=== PATIENT | female | born 1985 | race Caucasian/White ===

== ENCOUNTER 2018-06-03 15:45 | Outpatient (CLI) | payer MEDICAID ==
--- NOTE | 2018-06-04 06:55 | Ultrasound Report ---
Reason: ENCOUNTER FOR TEST, RESULT POSITIVE Procedure Date: 06/03/2018 Accession Number: [id number] / [id number] Procedure: US - OB First Trimester CPT Code: FULL RESULT: EXAM: FIRST TRIMESTER OBSTETRIC ULTRASOUND (Less than 11 weeks) EXAM DATE: 06/03/2018 04:56 PM. CLINICAL HISTORY: ENCOUNTER FOR TEST, RESULT POSITIVE. LMP: 03/25/2018, 10 weeks 0 days. COMPARISONS: None. TECHNIQUE: Transabdominal and transvaginal ultrasound examination with static image documentation. FINDINGS: Gestational Sac: An intrauterine fluid-filled sac contains both an embryo and yolk sac. Embryo: CRL (crown-rump length) measures 31 mm corresponding to an estimated gestational age of 9 weeks 4 days. Heart Rate: 169 beats per minute. Placenta: Not visible at this gestational age. Amniotic fluid: Not accurately assessed at this gestational age. Uterus: Unremarkable anteverted appearance. Cervix: Closed. Right Ovary: Volume 6 cc. Normal echotexture and blood flow. Left Ovary: Volume 10 cc. Normal echotexture and blood flow. Free Fluid: None. Other: None. IMPRESSION: Single live intrauterine at 10 weeks 0 days by LMP, today's exam is concordant -- for an estimated delivery date of 12/30/2018. RADIA
== END 2018-06-03 15:46 | disposition home or self-care (01) ==
LOC: DI 15:45
PROVIDERS: ATTEND Registered Nurse
DX: Z32.01 Encounter for pregnancy test, result positive (principal); Z3A.10 10 weeks gestation of pregnancy
CPT/HCPCS: 76801

== ENCOUNTER 2018-06-08 09:25 | Outpatient (CLI) | payer MEDICAID ==
[2018-06-08 14:22] LABS: MUDS CUTOFF CONCENTRATIONS CUTOFF CONC BELOW:
[2018-06-08 14:48] LABS: AMPHETAMINE SCREEN,URINE NEGATIVE (NEGATIVE); BENZODIAZEPINES SCREEN, URINE NEGATIVE (NEGATIVE); COCAINE SCREEN URINE NEGATIVE (NEGATIVE); METHADONE SCREEN, URINE NEGATIVE (NEGATIVE); METHAMPHETAMINES SCREEN, URINE NEGATIVE (NEGATIVE); OPIATE SCREEN, URINE NEGATIVE (NEGATIVE); OXYCODONE SCREEN, URINE NEGATIVE (NEGATIVE); PROPOXYPHENE SCREEN, URINE NEGATIVE (NEGATIVE); TRICYCLIC ANTIDEPRESSANT,URINE NEGATIVE (NEGATIVE)
== END 2018-06-08 09:26 ==
LOC: LAB.R 09:25
PROVIDERS: ATTEND Registered Nurse
DX: Z36.9 Encounter for antenatal screening, unspecified (principal)
CPT/HCPCS: 80306

== ENCOUNTER 2018-06-25 08:22 | Outpatient (CLI) | payer MEDICAID ==
[2018-06-25 08:57] LABS: BASOPHILS # (AUTO) 0.1 10^3/uL (0.0-0.1); BASOPHILS % (AUTO) 1.5 %; EOSINOPHILS # (AUTO) 0.1 10^3/uL (0.0-0.7); EOSINOPHILS % (AUTO) 0.9 %; HGB - HEMOGLOBIN 12.9 g/dL (12.0-16.0); LYMPHOCYTES # (AUTO) 1.6 10^3/uL (1.5-3.5); LYMPHOCYTES % (AUTO) 19.3 %; MEAN CORPUSCULAR HEMOGLOBIN 30.4 pg (27.0-31.0); MEAN CORPUSCULAR HGB CONC 34.6 g/dL (32.0-36.0); MEAN CORPUSCULAR VOLUME 87.9 fL (81.0-99.0); MEAN PLATELET VOLUME 8.1 fL (7.9-10.8); MONOCYTES # (AUTO) 0.5 10^3/uL (0.0-1.0); MONOCYTES % (AUTO) 5.7 %; NEUTROPHILS # (AUTO) 6.1 10^3/uL (1.5-6.6); NEUTROPHILS % (AUTO) 72.6 %; PLT - PLATELET COUNT 351 10^3/uL (130-450); RED BLOOD COUNT 4.25 10^6/uL (4.20-5.40); RED CELL DISTRIBUTION WIDTH 13.1 % (12.0-15.0); WHITE BLOOD COUNT 8.5 x10^3/uL (4.8-10.8)
[2018-06-25 09:11] LABS: HB2 TOTAL 13.9 g/dL; HEMOGLOBIN A1C 0.46 g/dL; HEMOGLOBIN A1C % 5.2 % (4.6-6.2)
[2018-06-25 10:17] LABS: ALBUMIN 3.6 g/dL (3.2-5.5); ALBUMIN/GLOBULIN RATIO 1.1 (1.0-2.2); BILIRUBIN,TOTAL 0.5 mg/dL (0.2-1.0); CREATININE 0.6 mg/dL (0.4-1.0)
[2018-06-25 10:34] LABS: BILIRUBIN,URINE NEGATIVE (NEGATIVE); CLARITY,URINE CLEAR (CLEAR); GLUCOSE, URINE (UA) NEGATIVE (NEGATIVE); KETONES,URINE (UA) TRACE mg/dL (NEGATIVE); LEUKOCYTE ESTERASE, URINE MODERATE (NEGATIVE); NITRITE,URINE NEGATIVE (NEGATIVE); OCCULT BLOOD,URINE NEGATIVE (NEGATIVE); PH,URINE 6.5 PH (5.0-7.5); PROTEIN,URINE NEGATIVE (NEGATIVE); UROBILINOGEN,URINE 1 (NORMAL) E.U./dL (NORMAL)
[2018-06-25 11:09] LABS: BACTERIA,URINE Moderate /HPF (None Seen); RBC,URINE 0-5 /HPF (0-5); SQUAMOUS EPITHELIAL CELL,UR MANY Squamous (<= Few)
[2018-06-26 14:56] LABS: HEPATITIS B SURFACE ANTIGEN NON-REACTIVE (NON-REACTIVE); HEPATITIS C ANTIBODY NON-REACTIVE (NON-REACTIVE)
[2018-06-26 15:22] LABS: HIV AG/AB 4TH GEN NON-REACTIVE (NON-REACTIVE)
== END 2018-06-25 08:23 | disposition home or self-care (01) ==
LOC: LAB 08:22
PROVIDERS: ATTEND Registered Nurse
DX: O99.211 Obesity complicating pregnancy, first trimester (principal); O26.21 Pregnancy care for patient with recurrent pregnancy loss, first trimester; Z36.9 Encounter for antenatal screening, unspecified
CPT/HCPCS: 36415; 80053; 81001; 81599; 82950; 83036; 84443; 85025; 86592; 86762; 86803; 86850; 86900; 86901; 87340; 87389

== ENCOUNTER 2018-08-06 14:53 | Outpatient (CLI) | payer MEDICAID | END 2018-08-06 23:59 | disposition home or self-care (01) | LOC: LAB.R 14:53 | PROVIDERS: ATTEND Registered Nurse | DX: N89.8 Other specified noninflammatory disorders of vagina (principal) | CPT/HCPCS: 87480; 87510; 87660 ==

== ENCOUNTER 2018-08-14 09:53 | Outpatient (CLI) | payer MEDICAID ==
--- NOTE | 2018-08-14 12:46 | Ultrasound Report ---
Reason: ENCOUNTER FOR OTHER SPECIFIED SCREENING Procedure Date: 08/14/2018 Accession Number: [id number] / [id number] Procedure: US - OB Detailed Eval CPT Code: FULL RESULT: EXAM: COMPLETE OBSTETRICAL ULTRASOUND EXAM DATE: 08/14/2018 11:26 AM. CLINICAL HISTORY: anatomic survey. LMP 03/24/2018 COMPARISON: 06/03/2018. TECHNIQUE: Real-time sonographic evaluation of the fetus performed by the chicken boner. Multiple sales representative business courses static images were saved for review. DATING: Established EGA 20 weeks 3 days with KEVON 12/29 based on LMP. EGA 19 weeks 6 days with KEVON 01/02/2019 based on prior ultrasound of 06/03/2018. EGA 20 weeks 5 days with KEVON 12/27/2018 based on the current ultrasound. GENERAL EVALUATION Jc . Cardiac activity: 148 bpm. movement: Present Presentation: Cephalic. Placenta: Posterior left position. No evidence for previa. Umbilical cord: 3 vessel cord. Central placental cord origin. Amniotic fluid: Subjectively normal. MVP 3.6 cm. BIOMETRY Bi-Parietal Diameter (BPD): 4.9 cm, 20 weeks 6 days Head Circumference (HC): 18.6 cm, 21 weeks 0 days Abdominal Circumference (AC): 15.3 cm, 20 weeks 3 days Femur Length (FL): 3.3 cm, 20 weeks 2 days Estimated Weight: 354 g, 46th percentile for gestational age. ANATOMY The intracranial structures, profile, face/nose/lips, spine, stomach, abdominal wall and cord insertion, diaphragm, kidneys, bladder, and extremities were imaged and demonstrate no abnormality. There is suboptimal visualization of the cardiac anatomy. Suggest follow-up limited ultrasound in 2-4 weeks. MATERNAL STRUCTURES Uterus: Unremarkable. Cervix: Long and closed. Transabdominal length 4.8 cm. Right ovary/adnexa: Unremarkable. Left ovary/adnexa: Unremarkable. Free fluid: None. IMPRESSION: 1. Jc intrauterine with gestational age 20 weeks 3 days based on LMP. 2. Estimated weight is within expected limits for assigned dating. 3. Normal anatomic survey with the exception of the cardiac anatomy which is suboptimally seen on this study.. Suggest follow-up limited ultrasound in 2-4 weeks to complete the anatomic survey. RADIA
== END 2018-08-14 09:54 | disposition home or self-care (01) ==
LOC: DI 09:53
PROVIDERS: ATTEND Nurse Practitioner Obstetrics & Gynecology
DX: Z36.89 Encounter for other specified antenatal screening (principal); Z3A.20 20 weeks gestation of pregnancy
CPT/HCPCS: 76811

== ENCOUNTER 2018-08-27 12:57 | Outpatient (CLI) | payer MEDICAID ==
--- NOTE | 2018-08-27 15:08 | Ultrasound Report ---
Reason: ENCOUNTER FOR OTHER SPECIFIED SCREENING Procedure Date: 08/27/2018 Accession Number: [id number] / [id number] Procedure: US - OB F/U or Repeat CPT Code: FULL RESULT: EXAM: FOLLOW-UP OBSTETRICAL ULTRASOUND EXAM DATE: 08/27/2018 02:25 PM. CLINICAL HISTORY: ENCOUNTER FOR OTHER SPECIFIED SCREENING. COMPARISON: 08/14/2018. TECHNIQUE: Real-time sonographic evaluation of the fetus performed by the general assembler. Multiple artist representative static images were saved for review. DATING: Established EGA 22 weeks 2 days with KEVON 12/29/2018 based on referring provider. GENERAL EVALUATION Jc . Cardiac activity: 146 bpm. movement: Visualized. Presentation: Cephalic. Placenta: Posterior position. Amniotic fluid: Normal. FEROZ 10.93 cm. MVP 4.2 cm. ANATOMY Four-chamber cardiac view, left and right ventricular outflow tract views are all normal. IMPRESSION: 1. Jc live intrauterine with gestational age 22 weeks 2 days based on referring obstetric information. 2. Normal cardiac anatomy. anatomy survey was completed normally. MIRANDAA
== END 2018-08-27 12:58 | disposition home or self-care (01) ==
LOC: DI 12:57
PROVIDERS: ATTEND Nurse Practitioner Obstetrics & Gynecology
DX: Z36.89 Encounter for other specified antenatal screening (principal); Z3A.22 22 weeks gestation of pregnancy
CPT/HCPCS: 76816

== ENCOUNTER 2018-10-02 11:15 | Outpatient (CLI) | payer MEDICAID ==
[2018-10-02 12:45] LABS: HGB - HEMOGLOBIN 12.5 g/dL (12.0-16.0); MEAN CORPUSCULAR HEMOGLOBIN 31.1 pg (27.0-31.0); MEAN CORPUSCULAR HGB CONC 34.9 g/dL (32.0-36.0); MEAN CORPUSCULAR VOLUME 89.2 fL (81.0-99.0); RED BLOOD COUNT 4.02 10^6/uL (4.20-5.40); RED CELL DISTRIBUTION WIDTH 13.4 % (12.0-15.0); WHITE BLOOD COUNT 9.9 x10^3/uL (4.8-10.8)
== END 2018-10-02 11:16 | disposition home or self-care (01) ==
LOC: LAB 11:15
PROVIDERS: ATTEND Registered Nurse
DX: Z36.89 Encounter for other specified antenatal screening (principal)
CPT/HCPCS: 36415; 82950; 85027; 86850

== ENCOUNTER 2018-10-19 06:11 | Outpatient (CLI) | payer MEDICAID ==
[2018-10-19 06:29] VITALS: BP 103/64
[2018-10-19 06:33] LABS: BILIRUBIN,URINE NEGATIVE (NEGATIVE); CLARITY,URINE CLEAR (CLEAR); GLUCOSE, URINE (UA) NEGATIVE (NEGATIVE); KETONES,URINE (UA) NEGATIVE (NEGATIVE); LEUKOCYTE ESTERASE, URINE SMALL (NEGATIVE); NITRITE,URINE NEGATIVE (NEGATIVE); OCCULT BLOOD,URINE TRACE-LYSE (NEGATIVE); PROTEIN,URINE NEGATIVE (NEGATIVE); UROBILINOGEN,URINE 0.2 (NORMAL) E.U./dL (NORMAL)
[2018-10-19 06:33] LABS: BASOPHILS % (AUTO) 0.4 %; EOSINOPHILS # (AUTO) 0.1 10^3/uL (0.0-0.7); EOSINOPHILS % (AUTO) 1.2 %; HGB - HEMOGLOBIN 12.3 g/dL (12.0-16.0); LYMPHOCYTES # (AUTO) 1.7 10^3/uL (1.5-3.5); LYMPHOCYTES % (AUTO) 17.1 %; MEAN CORPUSCULAR HEMOGLOBIN 29.6 pg (27.0-31.0); MEAN CORPUSCULAR HGB CONC 32.8 g/dL (32.0-36.0); MEAN CORPUSCULAR VOLUME 90.2 fL (81.0-99.0); MEAN PLATELET VOLUME 8.1 fL (7.9-10.8); MONOCYTES # (AUTO) 0.5 10^3/uL (0.0-1.0); MONOCYTES % (AUTO) 5.2 %; NEUTROPHILS # (AUTO) 7.7 10^3/uL (1.5-6.6); NEUTROPHILS % (AUTO) 76.1 %; PLT - PLATELET COUNT 361 10^3/uL (130-450); RED BLOOD COUNT 4.14 10^6/uL (4.20-5.40); RED CELL DISTRIBUTION WIDTH 13.8 % (12.0-15.0); WHITE BLOOD COUNT 10.1 x10^3/uL (4.8-10.8)
[2018-10-19 06:39] LABS: BACTERIA,URINE Rare /HPF (None Seen); RBC,URINE 0-5 /HPF (0-5); SQUAMOUS EPITHELIAL CELL,UR MANY Squamous (<= Few)
--- NOTE | 2018-10-19 08:33 | PROVIDER PROGRESS NOTE ---
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 She is a 33 y.o. EDC 12/29/18 by GELA gomez 29 6/7 weeks who presents with new onset 3rd trimester bleeding since this AM at 0300 hours. States noted several "lynette size" clots per vagina when she got up this AM to use BR. Last coitus 3 weeks ago. Has not been sexually active much this , but states she has had spotting after coitus during . Second trimester US report documents posterior placenta . Patient denies ongoing abdominal pain or uterine contractions. O: VSS/AF, pulse 91, 98% on RA Category I FHR tracing with no contractions, baseline FHR 150 bpm. Bedside abdominal US by me confirms posterior placenta well away from cervix with normal AF amount subjectively. Speculum exam performed by me, difficult exam due to redundant vaginal sidewalls, was able to visualize anterior cervix which appeared sl. friable, but no blood noted that appeared coming through cervical os, nor was there any evidence of bright red blood in vagina, old blood-tinged vaginal discharge only. Digital exam by performed using sterile glove revealed a cervix that was small, long and closed. Labs: UA with trace blood only CBC with HCT 37% and normal PLT count Impression/Plan: # 3rd trimester bleeding, small and transient. Suspect due to friable cervix. No active bleeding. RH + # Precautions given to return for further vaginal bleeding or contractions or abdominal pain, which could be signs of abruption or labor. # F/U with routine ob appointment as scheduled, sooner prn. Objective - Vital Signs/Intake & Output Vital Signs: Vital Signs x48h Temp Pulse Resp BP Pulse Ox 10/19/18 06:23 36.5 C 85 16 103/64 100 - Lab Results Fish Bones: 10/19/18 06:33 Other Labs: Lab Results x24hrs 10/19/18 10/19/18 Range/Units 06:33 06:15 WBC 10.1 (4.8-10.8) x10^3/uL RBC 4.14 L (4.20-5.40) 10^6/uL Hgb 12.3 (12.0-16.0) g/dL Hct 37.4 (37.0-47.0) % MCV 90.2 (81.0-99.0) fL MCH 29.6 (27.0-31.0) pg MCHC 32.8 (32.0-36.0) g/dL RDW 13.8 (12.0-15.0) % Plt Count 361 (130-450) 10^3/uL MPV 8.1 (7.9-10.8) fL Neut # (Auto) 7.7 H (1.5-6.6) 10^3/uL Lymph # (Auto) 1.7 (1.5-3.5) 10^3/uL [place] # (Auto) 0.5 (0.0-1.0) 10^3/uL Eos # (Auto) 0.1 (0.0-0.7) 10^3/uL Baso # (Auto) 0.0 (0.0-0.1) 10^3/uL Absolute Nucleated RBC 0.00 x10^3/uL Nucleated RBC % 0.0 /100WBC Urine Color YELLOW Urine Clarity CLEAR (CLEAR) Urine pH 7.0 (5.0-7.5) PH Ur Specific [place] 1.020 (1.002-1.030) Urine Protein NEGATIVE (NEGATIVE) mg/dL Urine Glucose (UA) NEGATIVE (NEGATIVE) mg/dL Urine Ketones NEGATIVE (NEGATIVE) mg/dL Urine Occult Blood TRACE-LYSE (NEGATIVE) Urine Nitrite NEGATIVE (NEGATIVE) Urine Bilirubin NEGATIVE (NEGATIVE) Urine Urobilinogen 0.2 (NORMAL) (NORMAL) E.U./dL Ur Leukocyte Esterase SMALL H (NEGATIVE) Urine RBC 0-5 (0-5) /HPF Urine WBC 0-3 (0-5) /HPF Ur Squamous Epith Cells MANY Squamous H (<= Few) Urine Bacteria Rare (None Seen) /HPF Urine Culture Comments NOT INDICATED
== END 2018-10-19 07:45 | disposition home or self-care (01) ==
LOC: WFO 06:11 → FBP 06:13 → WFO 07:45
PROVIDERS: ATTEND Obstetrics & Gynecology
DX: O26.853 Spotting complicating pregnancy, third trimester (principal); Z3A.29 29 weeks gestation of pregnancy
CPT/HCPCS: 81001; 85025; 87086; 99214

== ENCOUNTER 2018-11-25 10:59 | Outpatient (CLI) | payer MEDICAID ==
[2018-11-25 11:18] VITALS: BP 109/76
[2018-11-25 12:41] LABS: BILIRUBIN,URINE NEGATIVE (NEGATIVE); GLUCOSE, URINE (UA) NEGATIVE (NEGATIVE); KETONES,URINE (UA) NEGATIVE (NEGATIVE); LEUKOCYTE ESTERASE, URINE LARGE (NEGATIVE); NITRITE,URINE NEGATIVE (NEGATIVE); OCCULT BLOOD,URINE TRACE-INTA (NEGATIVE); PH,URINE 7.5 PH (5.0-7.5); PROTEIN,URINE NEGATIVE (NEGATIVE); UROBILINOGEN,URINE 0.2 (NORMAL) E.U./dL (NORMAL)
[2018-11-25 12:50] LABS: CLARITY,URINE CLEAR (CLEAR)
[2018-11-25 12:59] LABS: RUPTURE OF MEMBRANES PLUS NEGATIVE (NEGATIVE)
[2018-11-25 13:04] LABS: BACTERIA,URINE Few /HPF (None Seen); RBC,URINE 0-5 /HPF (0-5); SQUAMOUS EPITHELIAL CELL,UR MOD Squamous (<= Few)
--- NOTE | 2018-11-25 13:37 | PROVIDER PROGRESS NOTE ---
- HPI Chief Complaint: Leakage of vaginal fluid Current : Current EDU 12/29/18 Gestation 35 Weeks and 1 Days 5 Para 1 Vital Signs Temperature 36.7 C 11/25/18 11:17 Heart Rate 83 11/25/18 11:17 Respiratory Rate 18 11/25/18 11:17 Blood Pressure 109/76 11/25/18 11:17 O2 Saturation 100 11/25/18 11:17 Temperature 36.7 C 11/25/18 11:17 Heart Rate 83 11/25/18 11:17 Respiratory Rate 18 11/25/18 11:17 Blood Pressure 109/76 11/25/18 11:17 O2 Saturation 100 11/25/18 11:17 - Exam SVE deferred. ROM plus collected. No gross leakage of fluid noted. - Procedures OB Procedure Performed: NST Diagnosis/Indication for NST: Other NST Procedure: NST reactive. Baseline 140s, moderate variability, + accels, no decels Date: 11/25/18 Findings: NST reactive - see previous note. - Plan Plan: Raquel presents to [facility] with c/o leakage of clear vaginal fluid this morning. She states she urinated and then after she stood up she felt another significant amount of vaginal leakage. She denies vaginal bleeding. Does report some lower abdominal and pubic bone pressure but does not feel this is a significant change from the past week. Intermittent BH contractions but nothing consistent or overly uncomfortable. She reports +FM. She denies urinary symptoms. O: SVE deferred. NST -reactive. FHR baseline 140s, moderate variability, + accels, no decels. No gross leakage of fluid noted. ROM plus collected - Negative UA collected and appears contaminated. No culture indicated. A: 33yo @ 35.1wks gestation Vaginal leakage of fluid False labor P: Patient discharged home with instructions and reviewed warning s/sx. She has a f/u appt 11/27/2018. Pt verbalized understanding and denies further questions or concerns at this time.
== END 2018-11-25 13:39 | disposition home or self-care (01) ==
LOC: WFO 10:59 → FBP 11:00 → WFO 13:39
PROVIDERS: ATTEND Nurse Practitioner Obstetrics & Gynecology
DX: O47.1 False labor at or after 37 completed weeks of gestation (principal); Z3A.35 35 weeks gestation of pregnancy
CPT/HCPCS: 81001; 81003; 84112; 87086; 99213

== ENCOUNTER 2018-11-27 10:43 | Outpatient (CLI) | payer MEDICAID ==
[2018-11-28 11:12] LABS: HIV AG/AB 4TH GEN NON-REACTIVE (NON-REACTIVE)
[2018-11-28 12:46] LABS: HEPATITIS C ANTIBODY NON-REACTIVE (NON-REACTIVE)
[2018-12-01 14:56] LABS: HSV 2 IGG TYPE SPECIFIC AB <0.90 index
== END 2018-11-27 10:44 | disposition home or self-care (01) ==
LOC: LAB 10:43
PROVIDERS: ATTEND Nurse Practitioner Obstetrics & Gynecology
DX: Z36.85 Encounter for antenatal screening for Streptococcus B (principal)
CPT/HCPCS: 36415; 81599; 86592; 86695; 86696; 86803; 87389; 87491; 87591; 87797

== ENCOUNTER 2018-11-27 11:01 | Outpatient (CLI) | payer MEDICAID | END 2018-11-27 23:59 | disposition home or self-care (01) | LOC: LAB.R 11:01 | PROVIDERS: ATTEND Nurse Practitioner Obstetrics & Gynecology | DX: Z36.85 Encounter for antenatal screening for Streptococcus B (principal) | CPT/HCPCS: 87491; 87591; 87797 ==

== ENCOUNTER 2018-12-18 09:48 | Outpatient (CLI) | payer MEDICAID ==
[2018-12-18 22:24] LABS: TRICHOMONAS VAGINALIS DNA NEGATIVE (NEGATIVE)
== END 2018-12-18 09:49 | disposition home or self-care (01) ==
LOC: LAB.R 09:48
PROVIDERS: ATTEND Obstetrics & Gynecology
DX: Z34.83 Encounter for supervision of other normal pregnancy, third trimester (principal)
CPT/HCPCS: 87491; 87591; 87661

== ENCOUNTER 2018-12-29 06:24 | Inpatient (IN) | payer MEDICAID ==
[2018-12-29] MEDS ORDERED: SODIUM CHLORIDE FLUSH 0.9% 10 ML SYRINGE IVP PRN (06:55)
[2018-12-29] MEDS ORDERED: LACTATED RINGERS 1,000 ML IV ONE ×2 (07:31→15:51)
[2018-12-29 08:04] LABS: BASOPHILS % (AUTO) 0.4 %; EOSINOPHILS # (AUTO) 0.1 10^3/uL (0.0-0.7); EOSINOPHILS % (AUTO) 0.5 %; LYMPHOCYTES # (AUTO) 1.7 10^3/uL (1.5-3.5); LYMPHOCYTES % (AUTO) 17.3 %; MEAN CORPUSCULAR HEMOGLOBIN 28.9 pg (27.0-31.0); MEAN CORPUSCULAR HGB CONC 33.4 g/dL (32.0-36.0); MEAN CORPUSCULAR VOLUME 86.5 fL (81.0-99.0); MEAN PLATELET VOLUME 9.5 fL (7.9-10.8); MONOCYTES # (AUTO) 0.6 10^3/uL (0.0-1.0); MONOCYTES % (AUTO) 5.9 %; NEUTROPHILS # (AUTO) 7.5 10^3/uL (1.5-6.6); NEUTROPHILS % (AUTO) 75.9 %; PLT - PLATELET COUNT 324 10^3/uL (130-450); RED BLOOD COUNT 4.14 10^6/uL (4.20-5.40); RED CELL DISTRIBUTION WIDTH 13.6 % (12.0-15.0); WHITE BLOOD COUNT 9.9 x10^3/uL (4.8-10.8)
[2018-12-29] MEDS: miSOPROStol 100 MCG TABLET BC SCH ×2 (08:51→12:56)
[2018-12-29] MEDS ORDERED: LIDOCAINE-MPF 1% 5 ML VIAL ONE (08:55)
[2018-12-29] MEDS ORDERED: OXYTOCIN/SODIUM CHLORIDE 500 ML IV ONE (08:55)
[2018-12-29] MEDS ORDERED: SODIUM CHLORIDE FLUSH 0.9% 10 ML SYRINGE IVP SCH (09:00)
[2018-12-29] MEDS ORDERED: LIDOCAINE-MPF 1% 30 ML VIAL ONE (09:17)
--- NOTE | 2018-12-29 12:10 | HISTORY & PHYSICAL EXAMINATION ---
Admit History - Visit Reason Visit Reason: Other - : 5 Parity: 1 Premature: 0 Ectopic: 0 : 3 Care: positive: [facility] Risk/History: positive: None Complications This : positive: None Smoking Status: Former smoker - Mother's Labs Mother's Blood Type: positive: O Mother's RH: positive: Positive GBS: positive: Group B Step Negative Rubella Status: positive: Immune Meds/Allgy - Home Medications Home Medications: Ambulatory Orders Medication Instructions Recorded Confirmed Medroxyprogesterone Acetate 150 mg IM 01/29/13 10/04/13 [Depo-Provera] Loratadine/Pseudoephedrine 1 each PO 10/04/13 10/04/13 [Claritin-D 24 Hour Tablet] - Allergies Allergies/Adverse Reactions: Allergies Allergy/AdvReac Type Severity Reaction Status Date / Time No Known Drug Allergies Allergy Verified 10/04/13 17:47 Review of Systems - Constitutional Constitutional: denies: Fatigue, Fever, Chills, Malaise - Eyes Eyes: denies: Pain, Blurred vision, Spots in vision, Dipolpia - Cardiovascular Cariovascular: denies: Irregular heart rate, Palpitations, Chest pain, Edema - Respiratory Respiratory: denies: Cough, SOB at rest - Gastrointestinal Gastrointestinal: denies: Abdominal pain, Constipation, Diarrhea, Nausea, Vomiting - Integumentary Integumentary: denies: Rash, Pruritis - Neurological Neurological: denies: Headache - Psychiatric Psychiatric: denies: Depression, Anxiety Physical - Abdominal Exam Contraction Frequency (min/apart): none - Monitoring Heart Rate Baseline: 150 Strip Review: positive: Category I - Presentation Presentation: positive: Vertex - Vaginal Exam Membranes: positive: Membranes intact Dilation (in cm): 2 Effacement (%): 50 Station: positive: -3 Cervical Position: positive: Posterior - Speculum Exam Speculum Exam Performed: positive: No Plan for Labor - Plan For Labor I expect patient to be DC'd or transferred within 96 hours.: Yes Plan for Labor: HPI: This 33yo presents on 12/29/2018 for scheduled, elective IOL at 40.0wks gestation by LMP c/w first trimester U/S. SHe denies VB or Lof and reports intermittent BH contractions and some uterine cramping following her visit yesterday but nothing overly uncomfortable. She reports +FM. She has been a pt of [facility] through the duration of her . Her has been complicated by her obesity however her early 1 hour GTT was WNL. She also had an abnormal pap followed by colposcopy without biopsy and will have repeat colposcopy at her 8wk pp visit. Her previous delivery 10 years ago was complicated by episiotomy with extension to a third degree laceration - pt counseled during and declines LTCS. Cervical exam deferred upon her arrival secondary to absence of contractions and recent cervical exam yesterday in the clinic was 2/50/unenganged, posterior vertex. She was placed in observation status for pre-induction cervical ripening with misoprostol. Dating criteria: LMP 03/24/2019 Initial U/S @ 10.0wks - agrees Serial exams: agree PMHx: 05/2018 pap HSIL, HPV positive - colposcopy ; Asthma; depression Surgical Hx: colposcopy Family Hx: Asthma- mother, brother; Diabetes - uncle; Depression - mother, sister; Ovarian cancer - maternal grandmother Social Hx: Former smoker, no etoh or IVDA OB Hx: G1: 07/31/2004 Elective G2: 10/11/2007 42wk , 13 hour labo, epidural. Male. 7lb 10oz; depression G3: 03/28/2015 SAB G4: SAB G5: current Immunizations: Tdap 10/02/2018 Ultrasounds: 06/03/2019: Initial US at 10.0wks gestation - agrees with LMP dating 08/14/2018 FAS WNL with the exception of poor visualization of cardiac structures. Posterior placenta, no previa. FEROZ WNL. 3VC. 08/27/2018 F/u U/S, cardiac anatomy WNL Physical Exam: Normocephalic, atraumatic PERRLA Heart RRR w/o M/G/R Lungs CTAB Abdomen gravid, soft, and nontender EFW 3100g SVE - deferred (last check 12/28/2018 = 2/50/unengaged, posterior, vertex Bilateral LE's no edema Boyfriend supportive at the bedside Assessment: 33yo @ 40.0wks by LMP=10.0wk U/S Elective induction of labor with pre-induction cervical ripening with misoprostol 50mcg BC q 4 hours GBS neg Obese Plan: Place in observation status. Admit with SROM, active labor, or epidural placement Epidural per maternal request 50mcg BC misoprostol q 4 hours Anticipate spontaneous vaginal delivery.
--- NOTE | 2018-12-29 12:44 | PROVIDER PROGRESS NOTE ---
Labor Progress Note - Uterine Monitoring Uterine Monitoring Mode: positive: External toco Contraction Frequency (min/apart): 2-6 Contraction Intensity: positive: Mild Uterine Resting Tone: positive: Soft - Monitoring Monitor Mode: positive: External ultrasound Heart Rate Baseline: 140 Heart Rate Variability: positive: Moderate (6-25 bmp) Accelerations: positive: Present, 15x15 Decelerations: positive: None Strip Review: positive: Category I - Labor Progress Note Labor Progress Note/Additional Text: S: Patient sitting up in bed and states she is beginning to feel more back discomfort. Has no desire to get in the jacuzzi. Planning an epidural for pain management but feels she is able to cope well at this time. Boyfriend is supportive at the bedside. O: BP 111/67, HR 78 FHR baseline 140, moderate variability, + accels, no decels Contractions palpate mild every 2-6 minutes with soft resting tone SROM a copious amount of clear fluid at 1054 SVE - deferred A: 33yo @ 40.0wks gestation by L=10.0wk U/S Elective IOL with pre-induction cervical ripening with 50mcg BC misoprostol q 4 hours - s/p 1 dose GBS neg Obese P: Continue pre-induction cervical ripening Continuous monitoring. Encouraged ambulation and position changes. Epidural per maternal request Plan pitocin when pt comfortable with epidural SVE prior to 1700 dosage of misoprostol. Reviewed plan of care with pt, boyfriend, and labor RN at the bedside who are all in agreement and deny further questions or concerns at this time. Anticipate spontaneous vaginal delivery.
[2018-12-29] MEDS ORDERED: miSOPROStol 200 MCG TABLET ONE (14:25)
[2018-12-29] MEDS ORDERED: fent/BUPIV 2 MCG/0.125% 250 ML EP ONE (14:47)
[2018-12-29] MEDS ORDERED: ePHEDrine 50 MG/ML VIAL IVP PRN (15:19)
[2018-12-29] MEDS ORDERED: LACTATED RINGERS 500 ML IV ONE (15:19)
[2018-12-29] MEDS ORDERED: ONDANSETRON 4 MG/2 ML VIAL IVP PRN (15:19)
[2018-12-29] MEDS ORDERED: NALBUPHINE 10 MG/ML AMP IVP PRN (15:19)
[2018-12-29] MEDS ORDERED: METOCLOPRAMIDE 10 MG/2 ML VIAL IVP PRN (15:19)
[2018-12-29] MEDS ORDERED: diphenhydrAMINE INJ 50 MG/ML VIAL IVP PRN (15:19)
[2018-12-29] MEDS ORDERED: NALOXONE 0.4 MG/ML VIAL IVP PRN (15:19)
[2018-12-29] MEDS ORDERED: fent/BUPIV 2 MCG/0.125% 250 ML EP PRN (15:20)
--- NOTE | 2018-12-29 15:36 | ANESTHESIA ---
Pre-Anesthesia VS, & Labs - Diagnosis Active labor - Procedure Labor epidural Height 5 ft 4 in Weight (kg) 117.879 kg - NPO Other (ate lunch) - Is Patient ?: Yes - Lab Results Current Lab Results: Laboratory Tests 12/29/18 07:45: WBC 9.9, RBC 4.14 L, Hgb 12.0, Hct 35.8 L, MCV 86.5, MCH 28.9, MCHC 33.4, RDW 13.6, Plt Count 324, MPV 9.5, Neut # (Auto) 7.5 H, Lymph # (Auto) 1.7, [place] # (Auto) 0.6, Eos # (Auto) 0.1, Baso # (Auto) 0.0, Absolute Nucleated RBC 0.01, Nucleated RBC % 0.1 Lab results reviewed: Yes Fish Bones: 12/29/18 07:45 Home Medications and Allergies Active Medications Diphenhydramine HCl (Benadryl Inj) 12.5 - 25 mg IVP Q6HR PRN PRN Reason: ITCHING Ephedrine Sulfate () 5 mg IVP Q5M PRN PRN Reason: For SBP<100;give until SBP>100 Lactated Ringer's (Lr) 500 mls @ 999 mls/hr IV ONCE ONE Stop: 12/29/18 15:49 Fentanyl/Bupivacaine/Sodium Chlor (Fent/Bupiv 2 Mcg/0.125%) 250 mls @ 12 mls/hr EP .[id number] PRN PRN Reason: Analgesia Metoclopramide HCl (Reglan Inj) 10 mg IVP Q6HR PRN PRN Reason: Nausea / Vomiting Misoprostol (Cytotec) 50 mcg BC Q4H [facility] Last Admin: 12/29/18 12:56 Dose: 50 mcg Nalbuphine HCl (Nubain) 2.5 - 5 mg IVP Q4H PRN PRN Reason: ITCHING Naloxone HCl (Narcan) 0.1 mg IVP Q2M PRN PRN Reason: RR<8 Ondansetron HCl (Zofran Inj) 4 mg IVP Q6HR PRN PRN Reason: Nausea / Vomiting Sodium Chloride (Normal Saline Flush 0.9%) 10 ml IVP 0100,0900,1700 [facility] Sodium Chloride (Normal Saline Flush 0.9%) 10 ml IVP PRN PRN PRN Reason: NEEDED PER PROVIDER ORDERS Last Admin: 12/29/18 14:37 Dose: 10 ml Medroxyprogesterone Acetate [Depo-Provera] 150 mg IM 01/29/13 Loratadine/Pseudoephedrine [Claritin-D 24 Hour Tablet] 1 each PO 10/04/13 Allergies/Adverse Reactions: Allergies Allergy/AdvReac Type Severity Reaction Status Date / Time No Known Drug Allergies Allergy Verified 10/04/13 17:47 Anes History & Medical History - Anesthetic History Anesthesia Complications: reports: No previous complications Family history of Anesthesia Complications: Denies Family history of Malignant Hyperthermia: Denies - Medical History Cardiovascular: reports: None Pulmonary: reports: Asthma Gastrointestinal: reports: None Urinary: reports: None Neuro: reports: None Musculoskeletal: reports: None Endocrine/Autoimmune: reports: None Blood Disorders: reports: None Skin: reports: None Smoking Status: Former smoker Psychosocial: reports: No issues indicated - Obstetrical History : 5 Parity: 1 Events: positive: None Complications: positive: None Exam General: Alert Dental: WNL Mouth Opening: Greater than 4 Fingerbreadths Neck Mobility: Normal Mallampati classification: I Thyromental Distance: greater than 6 cm Respiratory: Lungs clear Cardiovascular: Regular rate Plan Anesthesia Type: Epidural Consent for Procedure(s) Verified and Reviewed: Yes Code Status: Attempt Resuscitation ASA classification: 2-Mild systemic disease Is this case an emergency?: Yes
[2018-12-29] MEDS: LACTATED RINGERS 1,000 ML IV SCH ×2 (16:43→20:16)
[2018-12-29] MEDS ORDERED: OXYTOCIN/SODIUM CHLORIDE 500 ML IV SCH (17:00)
--- NOTE | 2018-12-29 18:17 | PROVIDER PROGRESS NOTE ---
Labor Progress Note - Uterine Monitoring Uterine Monitoring Mode: positive: External toco Contraction Frequency (min/apart): intermittent Contraction Intensity: positive: Moderate Uterine Resting Tone: positive: Soft - Monitoring Monitor Mode: positive: External ultrasound Heart Rate Baseline: 140 Heart Rate Variability: positive: Moderate (6-25 bmp) Accelerations: positive: Present, 15x15 Decelerations: positive: None Strip Review: positive: Category I - Labor Progress Note Labor Progress Note/Additional Text: S: Sitting comfortable in bed with epidural. She is feeling well. Having some lower BPs improved with fluid bolus. Pt asymptomatic. Mom supportive at the bedside. O: BP 105/67, HR 80 FHR baseline 130s, moderate variability, + accels, no decels Contractions palpate moderate intermittently. SVE deferred. Last check unchanged. A: 33yo @ 40.0wks gestation by LMP Early labor Pitocin via IV with titration per protocol currently at 2mU/mL GBS neg Obesity P: Continue pitocin via IV with titration per protocol Continuous monitoring Anticipate spontaneous vaginal delivery
[2018-12-29] MEDS ORDERED: WITCH HAZEL/GLYCERIN 1 EACH MED..PAD TOP PRN (22:19)
[2018-12-29] MEDS ORDERED: HYDROCORTISONE 1% CREAM 28 GM TUBE PR PRN (22:19)
[2018-12-29] MEDS ORDERED: OXYTOCIN/SODIUM CHLORIDE 500 ML IV PRN (22:20)
--- NOTE | 2018-12-29 22:36 | DELIVERY NOTE ---
Delivery Note - Labor Labor: positive: Augmented by oxytocin, Other - Delivery Method Delivery Method: positive: Spontaneous vaginal delivery - Cervical Ripening Method Cervical Ripening Method: positive: Misoprostil - Presentation Presentation: positive: Vertex, BARBARA - left occiput anterior - Nuchal Cord Nuchal Cord: positive: Present, Reduced - Amniotic Fluid Description Amniotic Fluid Description: positive: Clear - Episiotomy Type Episiotomy Type: positive: None - Laceration Laceration: positive: None - Delivery Outcome Delivery Outcome: positive: Livebirth - [place] : positive: Placed in direct skin contact with mother, Bulb syringe, Stimulated, Warmed, [place] used sex: positive: Male - Cord Cord: positive: 3 vessels - Placenta Placenta: positive: Intact, Spontaneous - Estimated Blood Loss Estimated Blood Loss (in cc): 200 - Post Delivery Events Post Delivery Events: positive: No post delivery events - Delivery Comments (Free Text/Narrative) Delivery Comments (Free Text/Narrative): Labor: This 33yo @ 40.0wks gestation presented at 0630 on 12/29/2018 for elective IOL. FHR pattern demonstrated Category I pattern throughout labor. Misoprostol 50mcg BC q 4 hours x 2 total doses administered for pre-induction cervical ripening. SROM occurred at 1054 and was noted to be a copioius amount of clear fluid. Epidural placement per maternal request. Pitocin administered via IV for augmentation for a max infusion rate of 3 mU/mL. Pt progressed to c/c/+2 with urge to push at 2110 on 12/29/2018. : Normal of a 9lb1oz viable male infant at 2200 on 12/29/2018. Nuchal cord x 2 reduced. The was placed on maternal abdomen, stimulated, dried, and placed skin to skin. Pitocin administered via IV for hemostasis. The umbilical cord was allowed to stop pulsating at which time it was doubly clamped by CNM and cut by FOB. Cord blood was obtained. Placenta delivered spontaneously and intact at 2204. 3VC. EBL 200mL. Uterine fundus firm and there is no excessive bleeding. The perineum, vagina, and cervix were inspected and found to be intact with bruising to vaginal floor. Family bonding well. Both mother and baby were left in skin to skin contact and in stable condition.
[2018-12-30] MEDS: IBUPROFEN 800 MG TABLET PO SCH ×3 (00:07→16:18)
--- NOTE | 2018-12-30 07:30 | PROVIDER PROGRESS NOTE ---
Subjective - Subjective Subjective: S: Bonding well with baby. with little difficulty and having some difficulty getting baby to stay awake at the breast. Bleeding decreased and is light. Pain minimal and well controlled with oral medications. O: BP 121/72, HR 80, RR 17, T 36.6 Heart RRR w/o M/G/R, lungs CTAB, abdomen soft and nontender with fundus firm at U. Bilateral LE's trace edema. A: 33yo -->P2 PPD#1 s/p TSVD of viable male Obesity P: Continue routine pp care and medications. Evaluate for discharge home tomorrow. Objective - Vital Signs/Intake & Output Vital Signs: Vital Signs x48h Temp Pulse Resp BP Pulse Ox 12/30/18 02:00 36.6 C 80 17 121/72 99 12/29/18 23:49 75 16 103/64 12/29/18 23:34 85 16 104/49 L Intake & Output: Intake & Output 12/27/18 12/28/18 12/29/18 12/30/18 23:59 23:59 23:59 23:59 Intake Total 1201.684 Output Total 700 300 Balance 501.684 -300 - Lab Results Fish Bones: 12/29/18 07:45 Other Labs: Lab Results x24hrs 12/29/18 Range/Units 07:45 WBC 9.9 (4.8-10.8) x10^3/uL RBC 4.14 L (4.20-5.40) 10^6/uL Hgb 12.0 (12.0-16.0) g/dL Hct 35.8 L (37.0-47.0) % MCV 86.5 (81.0-99.0) fL MCH 28.9 (27.0-31.0) pg MCHC 33.4 (32.0-36.0) g/dL RDW 13.6 (12.0-15.0) % Plt Count 324 (130-450) 10^3/uL MPV 9.5 (7.9-10.8) fL Neut # (Auto) 7.5 H (1.5-6.6) 10^3/uL Lymph # (Auto) 1.7 (1.5-3.5) 10^3/uL [place] # (Auto) 0.6 (0.0-1.0) 10^3/uL Eos # (Auto) 0.1 (0.0-0.7) 10^3/uL Baso # (Auto) 0.0 (0.0-0.1) 10^3/uL Absolute Nucleated RBC 0.01 x10^3/uL Nucleated RBC % 0.1 /100WBC
[2018-12-30] MEDS: ACETAMINOPHEN 500 MG TABLET PO SCH ×2 (07:47→16:18)
[2018-12-30] MEDS: DOCUSATE SODIUM 100 MG CAPSULE PO SCH (16:19)
[2018-12-31] MEDS: ACETAMINOPHEN 500 MG TABLET PO SCH (01:33)
[2018-12-31] MEDS: IBUPROFEN 800 MG TABLET PO SCH ×2 (01:33→08:35)
[2018-12-31 08:12] VITALS: BP 103/64
[2018-12-31] MEDS: DOCUSATE SODIUM 100 MG CAPSULE PO SCH (08:36)
--- NOTE | 2018-12-31 09:16 | PROVIDER PROGRESS NOTE ---
Subjective - Subjective Subjective: FINAL PROGRESS NOTE: S: Bonding well with baby. with some difficulty getting baby to latch. She has attempted to hand express without success. She was able to express colostrum with the pump and syringe fed baby. She also supplemented with formula and feels she will continue to do this at home at least until her milk comes in. She was able to nap last night while the nurses held the baby and she states she feels significantly better and like she now has a better. She has a strong desire to go home today. Bleeding is decreased and is light. Pain well controlled with oral medications. O: BP 100/67, HR 70; RR 18; T 36.6 Heart RRR w/o M/G/R, lungs CTAB, abdomen soft and nontender with fundus firm at U-1. Perineum intact. Bilateral LE's no edema. A: 33yo -->P2 PPD #2 s/p TSVD of viable male infant with formula supplementation Perineum intact Normal recovery P: Reviewed self care and warning s/sx. Advised continuation of PNV while Advised ibuprofen and tylenol OTC for pain management PRN F/u in 1 week for support visit and in 3 weeks for routine pp visit or sooner PRN. Pt verbalized understanding and agrees to above plan. She denies further questions or concerns at this time. Objective - Vital Signs/Intake & Output Vital Signs: Vital Signs x48h Temp Pulse Resp BP Pulse Ox 12/31/18 08:12 36.9 C 55 L 18 103/64 99 12/31/18 06:29 36.6 C 70 18 100/67 98 12/31/18 06:00 36.6 C 69 16 99/81 H 99 Intake & Output: Intake & Output 12/28/18 12/29/18 12/30/18 12/31/18 23:59 23:59 23:59 23:59 Intake Total 1201.684 Output Total 700 300 1 Balance 501.684 -300 -1 - Lab Results Fish Bones: 12/29/18 07:45
--- NOTE | 2018-12-31 09:17 | Discharge Plan ---
Discharge Plan Disposition: 01 Home, Self Care Condition: Good Diet: Regular Activity Restrictions: No Restrictions Shower Restrictions: No Driving Restrictions: No Weight Bearing: Full Weight No Smoking: If you smoke, Please STOP! Call for help. Follow-up with: Lizzeth Webber CNM, ARNP [Provider Admit Priv/Credential] -
--- NOTE | 2018-12-31 10:55 | DISCHARGE SUMMARY ---
Physician: HUGO Pina DATE OF ADMISSION: 12/29/2018 DATE OF DISCHARGE: 12/31/2018 DIAGNOSES ON ADMISSION 1. A 33-year-old -0-3-1 at 40 week's gestation. 2. Elective induction of labor. 3. Group B streptococcus negative. 4. Obese. DIAGNOSES ON DISCHARGE 1. A 33-year-old G5, P2-0-3-2, status post spontaneous vaginal delivery on 12/29/2018. 2. Normal recovery. 3. Obese. BRIEF HISTORY: She is a patient of [facility] who presented on 12/29/2018 for elect kelli induction of labor at 40+0 weeks gestation. Upon arrival, her cervix was noted to be 2 cm dilate d, 50% effaced, and -3 station, posterior position, vertex presentation. She was given 1 dose of mis oprostol for preinduction cervical ripening. Spontaneous rupture of membranes occurred on 12/29/2018 at 10:54 and was noted to be a moderate amount of clear fluid. She received an epidural per her req uest. She was augmented with Pitocin and she progressed to spontaneously deliver a viable male infan t on 12/29/2018 at 2200. Apgars were 7 and 9 at 1 and 5 minutes, respectively. EBL 200 mL. The per ineum remained intact with the delivery. She has been doing well in her postoperative course. She is ambulating and tolerating a regular diet . She is urinating without difficulty. Her lochia is normal. Her pain is well controlled with oral medications. She will be discharged home today on day 2 with instructions to continue he r vitamin while , and to take ibuprofen and Tylenol for pain management as need ed. She intends to follow up with myself at [facility] in 1 week for supp ort visit and in 3 weeks for routine visit. She has been given precautions to call if she has any worsening fevers, chills, abdominal pain, increased bleeding or foul-smelling vaginal lochia . TD: 12/31/2018 09:24
--- NOTE | 2018-12-31 16:12 | Labor Flowsheet ---
Labor Flowsheet Datetime Report Generated by CPN: 12/31/2018 16:11 Datetime: 12/31/2018 07:42 VITAL SIGNS NBP Sys/Elaine/Mean (mmHg): 103 : 64 : 73 Pulse: 61 LaborFlag: Labor Datetime: 12/31/2018 06:29 SpO2 (%): 99 Datetime: 12/29/2018 22:00 Comments: baby boy @2200 Datetime: 12/29/2018 21:30 FHR Baseline Rate : 120 Datetime: 12/29/2018 21:18 Patient Care Comments: O2 @ 10 L mask Datetime: 12/29/2018 21:10 Contraction Comments: pushing Datetime: 12/29/2018 21:08 VAGINAL EXAM Dilatation (cm): 10.0 Effacement (%): 100 Station: 2 Datetime: 12/29/2018 21:05 Communication Comments: Lizzeth Akbar CNM @ bedside Datetime: 12/29/2018 21:00 UTERINE ACTIVITY Monitor Mode: External Frequency (min): 2 Quality: Mild Duration (sec): 30-60 Resting Tone (Palpate): Relaxed ASSESSMENT A Monitor Mode: External US Variability: Moderate 6-25 bpm Accelerations: 15X15 Decelerations: Variable Category: Category I Datetime: 12/29/2018 20:44 Vaginal Exam Comments: ant lip Datetime: 12/29/2018 19:54 Temperature (C): 37.4 Datetime: 12/29/2018 19:45 Exam by: T Marson RN Vaginal Bleeding: Scant Patient Position/Activity: Semi-Fowlers Datetime: 12/29/2018 19:30 Monitor Interventions for UA: Wilcox Adjusted Datetime: 12/29/2018 19:15 Oxygen Method: Room Air COMMUNICATION Communication: Report Given to @ Brigette Sloan RN Datetime: 12/29/2018 19:00 Respirations: 16 Temperature Route: Oral Pain Presence: None/Denies Anesthesia Level Check: T8- Ribs Anesthesia Comments: L side Datetime: 12/29/2018 18:58 Pattern: Normal: <= 5 Contractions in 10 Minutes Datetime: 12/29/2018 18:45 Pitocin Checklist: At Least 1 Acceleration of 15 bpm x 15 Seconds in 30 Minutes or Adequate Variabi lity; No More than 1 Late Deceleration Occurred in Past 30 Minutes; No More than 5 Uterine Contractio ns in 10 Minutes for any 20 Minute Interval; Uterus Palpates Soft between Contractions Monitor Interventions for FHR: Ultrasound Adjusted Datetime: 12/29/2018 18:17 MEDICATIONS Pitocin (milliunits): Increased to @ 3 Provider Notified (Name): A. Akbar CNM Datetime: 12/29/2018 17:36 Notification Reason: Maternal Vital Sign Change Datetime: 12/29/2018 17:09 Hygiene: Mary Jo Care I/O Interventions: Jarrett Cath Inserted Datetime: 12/29/2018 16:30 FHR Baseline Changes: No Baseline Change Datetime: 12/29/2018 16:00 PAIN Pain Scale: 0 Datetime: 12/29/2018 15:12 Epidural Procedure Other: Pump Started Datetime: 12/29/2018 15:04 Epidural Procedure: Loading Dose Datetime: 12/29/2018 14:49 PROCEDURE TIME OUT Procedure Verify: Correct Patient Identity; Correct Side and Site are Marked; Accurate Procedure Co nsent Form; Agreement on Procedure to be Done; Correct Patient Position ANESTHESIA Anesthesia Plans: Epidural Epidural Positioning: Sitting Datetime: 12/29/2018 14:39 PATIENT CARE IV/Blood Work: IV Bolus Started Datetime: 12/29/2018 14:30 Pain Type: Contraction Pain Location: Abdomen; Back Pain Coping: Requesting Pain Medication or Epidural; Crying Pain Assessment Comments: patient requests epidural Comfort Measures: Breathing/Relaxation; Family Support; Anesthesia Notified Datetime: 12/29/2018 14:08 Pain Goal: 5 Pain Relief Measures: Comfort Measures (Annotations: assist patient to extreme L lateral, denies ne ed for epidural at this time.) Datetime: 12/29/2018 12:56 Cervical Ripening Agents: Cytotec @ Datetime: 12/29/2018 10:54 Membranes Rupture Method: Spontaneous Amniotic Fluid Color: Clear Amniotic Fluid Amount: Large Amniotic Fluid Odor: Normal Nitrazine: Positive Datetime: 12/29/2018 09:35 PRE-INDUCTION CHECKLIST Orders on Chart: Yes Record Available: Yes Indication Charted: Yes Gestational Age Documented: Yes Consent Signed and on Chart: Yes Status of Cervix Documented: Yes 30min of Monitoring Prior: Yes 2 Accels of 15X15 Present: Yes No Late Decels Present: Yes Less than 2 Variable Decels: Yes Datetime: 12/29/2018 09:31 Membranes Ruptured Date/Time: 12/29/2018 10:54
== END 2018-12-31 15:00 | disposition home or self-care (01) | DRG 807 ==
LOC: WFO 06:24 → FBP 06:27 → WFO 06:54 → UNDOADMOB 06:55 → FBP 06:55 → INTOOBSV 10:54 → FBP 10:54 → OBSVTOIN 10:54
PROVIDERS: ADMIT Nurse Practitioner Obstetrics & Gynecology; ATTEND Nurse Practitioner Obstetrics & Gynecology
PROC: 10E0XZZ Delivery of Products of Conception, External Approach (ICD-10-PCS; principal; 2018-12-29)
DX: O99.214 Obesity complicating childbirth (principal); Z37.0 Single live birth; O99.52 Diseases of the respiratory system complicating childbirth; J45.909 Unspecified asthma, uncomplicated; O34.43 Maternal care for other abnormalities of cervix, third trimester; R87.613 High grade squamous intraepithelial lesion on cytologic smear of cervix (HGSIL); O69.81X0 Labor and delivery complicated by cord around neck, without compression, not applicable or unspecified; Z3A.40 40 weeks gestation of pregnancy; Z87.891 Personal history of nicotine dependence
CPT/HCPCS: 85025; A9270; G0378; G0379; J7120

== ENCOUNTER 2020-01-25 13:54 | Emergency (ER) | payer MEDICAID ==
[2020-01-25 14:01] VITALS: BP 131/86
--- NOTE | 2020-01-25 14:47 | ED Physician Documentation ---
PD HPI OPHTHO - Stated complaint Stated Complaint: EYE INJ - Chief complaint Chief Complaint: Heent - History obtained from History obtained from: Patient - History of Present Illness Timing - onset: How many days ago (3) Timing - duration: Days Timing - details: Gradual onset Pain level max: 0 Pain level now: 0 Location: Right - Additional information Additional information: 34-year-old female presents to the emergency department with chief complaint of bleeding from the right eye. She has developed a large subconjunctival hematoma on the lateral side of the right eye. She has had this multiple times in the past but has never had bleeding before. She denies any recent trauma. No vomiting straining. She is not taking any blood thinners. Denies bruising on her body. Denies bleeding when she brushes her teeth. no headache. No NSAID use. Patient does not use contact lenses is not wearing corrective lenses. Denies vision changes Review of Systems Constitutional: denies: Fever, Chills Eyes: reports: Discharge. denies: Loss of vision, Decreased vision, Photophobia, Irritation Cardiac: denies: Chest pain / pressure, Palpitations Respiratory: denies: Dyspnea, Cough PD PAST MEDICAL HISTORY - Past Medical History Past Medical History: Yes Cardiovascular: None Respiratory: Asthma Neuro: None Endocrine/Autoimmune: None GI: None : None HEENT: None Psych: None Musculoskeletal: None Derm: None - Past Surgical History Past Surgical History: No - Present Medications Home Medications: Ambulatory Orders Medication Instructions Recorded Confirmed Medroxyprogesterone Acetate 150 mg IM 01/29/13 10/04/13 [Depo-Provera] Loratadine/Pseudoephedrine 1 each PO 10/04/13 10/04/13 [Claritin-D 24 Hour Tablet] - Allergies Allergies/Adverse Reactions: Allergies Allergy/AdvReac Type Severity Reaction Status Date / Time No Known Drug Allergies Allergy Verified 01/25/20 13:57 - Social History Does the pt smoke?: No Smoking Status: Never smoker Does the pt drink ETOH?: No Does the pt have substance abuse?: No - Immunizations Immunizations are current?: Yes - POLST Patient has POLST: No PD ED PE NORMAL - General General: Alert and oriented X 3, No acute distress, Well developed/nourished - HEENT HEENT: Atraumatic (ocular pressure 16 mmHg right eye), PERRL, EOMI, Other (large subconjunctival hematoma lateral right eye. some bleeding noted in the upper lid with clot formation. No iris involvment) Results - Vitals Vitals: Vital Signs - 24 hr 01/25/20 13:57 Temperature 36.5 C Heart Rate 82 Respiratory 16 Rate Blood Pressure 131/86 H O2 Saturation 99 Oxygen O2 Source Room air PD MEDICAL DECISION MAKING - ED course Complexity details: reviewed results, re-evaluated patient, d/w patient ED course: 34 year old female here with a right subconjunctival hematoma without involvement of the radha. Vision is preserved. Normal ocula pressure. PERRLA. No recent straining events, though she has had simialr in the past - recommend close follow up with psychotherapist social worker - emergent return precautions discussed Departure - Departure Disposition: 01 Home, Self Care Clinical Impression: Subconjunctival hemorrhage of right eye Condition: Stable Instructions: Subconjunctival Hemorrhage Comments: Please see your psychotherapist social worker within the next 3 to 4 days. The subconj unctival hematoma will dissipate much like a bruise on your skin does. You may place a cool compress over the eye to help with the bleeding. Return to the emergency department if you develop eye pain or have loss of vision.
== END 2020-01-25 14:57 | disposition home or self-care (01) ==
LOC: ED 13:54
DX: H11.31 Conjunctival hemorrhage, right eye (principal)
CPT/HCPCS: 99281; 99283